=== PATIENT | female | born 1970 | race Caucasian/White ===

== ENCOUNTER 2016-10-18 22:38 | Emergency (ER) | payer BC ==
--- NOTE | 2016-10-18 23:06 | ED Physician Chart ---
Chief Complaint/HPI - Patient Information Date Seen:: 10/18/16 Time Seen:: 22:55 Chief Complaint:: R sided chest pain since about 8:30 pm today. History of Present Illness:: Brought in by private auto because of onset of R sided chest pain since about 8: 30 pm today. Chest pain is characterized as sharp, localized, and intermittent. Chest pain can be precipitated and aggravated with chest wall movements or palpation. No cough, dyspnea, palpitation, ankle edema, SILVA, or lightheadedness. Pt does not recall any chest injury or heavy lifting. Allergies:: PCN Vitals:: Vital Signs - 8 hr 10/18/16 22:53 Temp 97.1 F HR 77 RR 16 BP 137/80 O2 Sat % 98 Historian:: Patient Family MD/PCP:: Dr. Velasco LMP:: Now Review:: Nurse's Note Reviewed Review of Systems - Review of Systems General/Constitutional: No fever, No chills, No weight loss, No weakness, No diaphoresis, No edema, No loss of appetite Skin: No skin lesions, No rash, No bruising Head: No headache, No light-headedness Eyes: No loss of vision, No pain, No diplopia ENT: Earache Neck: No neck pain, No swelling, No thyromegaly, No stiffness, No mass noted Cardio Vascular: Chest pain (History is c/w noncardiac in etiology.), No palpitations, No edema Pulmonary: No SOB, No cough, No wheezing GI: No nausea, No vomiting, No diarrhea, No pain G/U: No dysuria, No frequency, No hematuria Bundles Hanger: No vaginal discharge, No abnormal vaginal bleed Musculoskeletal: No bone or joint pain, No back pain, No muscle pain, Other ( chest wall pain) Endocrine: No polyuria, No polydipsia Psychiatric: No prior psych history Hematopoietic: No bruising, No lymphadenopathy Allergic/Immuno: No urticaria, No angioedema Neurological: No syncope, No focal symptoms, No weakness, No paresthesia, No headache, No seizure, No dizziness, No confusion, No vertigo Past Medical History - Past Medical History Past Medical History: No significant medical hx Family History: None Social History: Smoker (3-4 cigarets daily. Pt has been informed about health risks associated with tobacco and has been advised to quit. Pt acknowledges understanding.), Alcohol (Occasional), No Drug Use, , Employed, Other ( lives with her daughter) Employment:: social human services assistants. Surgical History: other (L oophorectomy in 2009. Bilateral breast augmentation in 2010.) Psychiatricy History: None Medication: Reviewed Family Medical History - Family Member Daughter Ethnicity: Non- Living Status: Still Living Physical Exam - Physical Examination General/Constitutional: Awake, Well-developed, well-nourished, Alert, No distress, GCS 15, Non-toxic appearing, Ambulatory Other Gen/Cons comments:: Breathes comfortably, speaks clearly, interacts normally, and ambulates without difficulty. Head: Atraumatic Eyes: Lids, conjuctiva normal, PERRL, EOMI Skin: Nl inspection, No rash, No skin lesions, No ecchymosis, Well hydrated, No lymphadenopathy ENMT: External ears, nose nl, Lips, teeth, gums nl, Oropharynx nl Neck: Nontender, Full ROM w/o pain, No JVD, No nuchal rigidity, No mass, No stridor Respiratory: Nl effort/Exclusion, Clear to Auscultation, No Wheeze/Rhonchi/Rales Other Respiratory comments:: Chest wall exam (performed in the presence of my female staff member Georgi): Reproducible tenderness at R mid and upper parasternal region at costophrenic junctures. No crepitus, erythema, ecchymosis or open wound. Pt states that it it exactly the same pain that she has experienced. Cardio Vascular: RRR, No murmur, gallop, rubs, NL S1 S2 GI: No tenderness/rebounding/guarding, No organomegaly, Normal BS's, Nondistended Other GI comments:: Abdomen is soft. Extremities: No edema Neuro/Psych: Alert/oriented (oriented x 3 ), Judgement/insight normal, Mood normal, Normal gait, No focal deficits Labs/Radiology/EKG Results - Lab Results Results: Laboratory Tests 10/18/16 10/18/16 10/18/16 23:35 23:35 23:35 WBC 6.4 RBC 4.21 Hgb 12.9 Hct 37.9 MCV 90.0 MCH 30.7 MCHC Differential 34.2 RDW 11.9 Plt Count 185 MPV 9.1 Neutrophils % 62.3 Lymphocytes % 27.4 Monocytes % 6.8 Eosinophils % 2.3 Basophils % 1.2 PT 10.4 INR 1.00 PTT (Actin FS) 23.6 L Sodium 136 Potassium 3.9 Chloride 107 Carbon Dioxide 26.2 Anion Gap 6.7 L BUN 21 Creatinine 0.8 Est GFR ( Amer) > 60.0 Est GFR (Non-Af Amer) > 60.0 BUN/Creatinine Ratio 26.3 Glucose 103 Calcium 9.1 Total Bilirubin 0.4 AST 12 L ALT 6 L Alkaline Phosphatase 65 Creatine Kinase 45 Troponin I Total Protein 6.5 Albumin 4.1 Globulin 2.4 Albumin/Globulin Ratio 1.7 10/18/16 23:35 WBC RBC Hgb Hct MCV MCH MCHC Differential RDW Plt Count MPV Neutrophils % Lymphocytes % Monocytes % Eosinophils % Basophils % PT INR PTT (Actin FS) Sodium Potassium Chloride Carbon Dioxide Anion Gap BUN Creatinine Est GFR ( Amer) Est GFR (Non-Af Amer) BUN/Creatinine Ratio Glucose Calcium Total Bilirubin AST ALT Alkaline Phosphatase Creatine Kinase Troponin I < 0.01 L Total Protein Albumin Globulin Albumin/Globulin Ratio - Radiology Results Results: PCXR: Based on my interpretation, breast augmentation noticed. NAD otherwise. Official report is pending. - EKG Interpretations EKG Time:: 22:56 Rate & Rhythm: NSR with VR 66 Comments:: No acute ischemic changes. ED Septic Shock - . Is Septic Shock (SBP<90, OR Lactate>4 mmol\L) present?: No - <6hrs of presentation: Vital Signs: Vital Signs - 8 hr 10/18/16 22:53 Temp 97.1 F HR 77 RR 16 BP 137/80 O2 Sat % 98 Reassessment (Disposition) - Reassessment Reassessment:: 0030 Pt overall feels better. Lab results and CXR just became available. EKG, Lab and CXR findings have been reviewed with pt. Pt requests to leave now. Aftercare instructions have been given. Reassessment Condition:: Improved - Diagnosis Diagnosis:: Noncardiac chest pain c/w costochondritis, stable and improved. - Aftercare/Follow up Instructions Aftercare/Follow-Up Instructions:: Refer to Discharge Instructions Notes:: May take Motrin 200 mg tab 3 tabs po q8h prn for noncardiac chest wall pain. Avoid activities that increase chest wall motion. F/U with PCP Dr. Velasco or this ER in one day for recheck. Return to ER immediately if condition worsens or if any further questions/problems. Medication Prescribed:: None - Patient Disposition Discharge/Transfer:: Home Time:: 00:37 Condition at Disposition:: Stable, Improved ED Discharge Plan - Patient Disposition Instructions: Costochondritis, [id number] Additional Instructions: follow up with your primary medical doctor JENISE may take motrin 600mg every 8 hours as needed for pain minimize movements involving chest muscles.
[2016-10-18 23:43] LABS: % BASOPHILS 1.2 % (0.0-2.0); % EOSINOPHILS 2.3 % (0.0-5.0); % LYMPHOCYTES 27.4 % (20.0-50.0); % MONOCYTES 6.8 % (2.0-10.0); % NEUTROPHILS 62.3 % (40.0-80.0); HEMATOCRIT 37.9 % (35.0-45.0); HEMOGLOBIN 12.9 gm/dL (11.7-15.5); MEAN CORPUSCULAR HEMOGLOBIN 30.7 pg (27.0-31.0); MEAN CORPUSCULAR HGB CONC 34.2 pg (28.0-36.0); MEAN PLATELET VOLUME 9.1 fl; PLATELET COUNT 185 Th/cmm (150-400); RED BLOOD COUNT 4.21 Mil/cmm (3.80-5.10); RED CELL DISTRIBUTION WIDTH 11.9 % (11.5-20.0); WHITE BLOOD COUNT 6.4 Th/cmm (4.8-10.8)
[2016-10-19 00:01] LABS: PROTHROMBIN TIME (TEST) 10.4 SECONDS (9.5-11.5)
[2016-10-19 00:03] LABS: ALB/GLOB RATIO 1.7 (1.0-1.8); ALKALINE PHOSPHATASE 65 U/L (34-104); ANION GAP 6.7 (7.0-16.0); BILIRUBIN,TOTAL 0.4 mg/dL (0.3-1.0); BUN - UREA NITROGEN 21 mg/dL (7-25); BUN/CREATININE RATIO 26.3; CALCIUM SERUM 9.1 mg/dL (8.6-10.3); CARBON DIOXIDE 26.2 mEq/L (21.0-31.0); CHLORIDE 107 mEq/L (98-107); CREATININE - SERUM 0.8 mg/dL (0.6-1.2); GLUCOSE 103 mg/dL (70-105); POTASSIUM SERUM 3.9 mEq/L (3.5-5.1); SGOT 12 U/L (13-39); SGPT/ALT 6 U/L (7-52); SODIUM SERUM 136 mEq/L (136-145)
--- NOTE | 2016-10-19 11:22 | Diagnostic Imaging Report ---
Portable chest x-ray History: Pain Allowing for portable technique the heart size is normal. No focal pulmonary parenchymal processes. No hilar or mediastinal abnormalities. Impression: No acute abnormalities.
== END 2016-10-19 00:30 | disposition home or self-care (01) ==
LOC: ER 22:38
DX: M94.0 Chondrocostal junction syndrome [Tietze] (principal); R07.89 Other chest pain; F17.210 Nicotine dependence, cigarettes, uncomplicated; Z88.0 Allergy status to penicillin
CPT/HCPCS: 36415-UA; 71010-TC; 80053-TC; 81025-TC; 82550-TC; 84484-TC; 85025-TC; 85610-TC; 93005